=== PATIENT | female | born 1960 | race Caucasian/White ===

== ENCOUNTER → 2020-11-27 07:54 | Outpatient (CLI) | payer OTHER, SELFPAY ==
--- NOTE | 2020-11-27 | DI.US.S_ITS ---
PROCEDURE: US ABDOMEN COMPLETE INDICATIONS: BILIARY COLIC TECHNIQUE: Real-time scanning was performed of the abdominal and retroperitoneal organs, with image documentation. COMPARISON: [facility], US, ABDOMEN COMPLETE, 04/15/2008, 14:07. FINDINGS: Liver: The liver demonstrates prominent size. The liver demonstrates generalized mildly increased echogenicity. This decreases ultrasound sensitivity for detection of hepatic masses. Gallbladder: No findings of gallstones or sludge are seen. The gallbladder wall is not thickened, measuring 3 mm or less. No specific pericholecystic fluid is seen. The sonographic Henry sign is negative. Biliary ducts: Intrahepatic bile ducts are non-dilated. Extrahepatic bile duct caliber measures 5 mm. Normal is 6-7 mm or less in diameter, or 10 mm or less post-cholecystectomy. Pancreas: Visualized portions of the pancreas are sonographically normal. Spleen: Spleen is normal in size and homogeneous in echotexture. Kidneys: Kidneys are normal in size and echotexture. Right kidney measures 13.2 cm long; left kidney measures 15.1 cm long. No hydronephrosis or nephrolithiasis. No solid masses. Within the right mid/lateral kidney, there is a simple cyst that measures up to 11 mm. The left kidney demonstrates a duplicated collecting system with trace pelvicaliectasis. The inferior ureter is prominent, measuring 1.7 cm. Aorta: Visualized aorta is normal in caliber at less than 3 cm. Iliacs: Proximal common iliac arteries are normal in caliber at less than 2.5 cm. IVC: Intrahepatic inferior vena cava is patent. Miscellaneous: No free abdominal fluid. IMPRESSION: The gallbladder demonstrates a normal sonographic appearance. No biliary dilatation is seen. Duplicated left renal collecting system incidentally noted, with prominence of the inferior left proximal ureter. Enlarged, fatty infiltrated liver. Dictated by: Ramírez Silva M.D. on 11/27/2020 at 9:43 Approved by: Ramírez Silva M.D. on 11/27/2020 at 9:45
== END ==
PROVIDERS: Referring Provider Family Medicine; Visit Provider Family Medicine
DX: K80.50 Calculus of bile duct without cholangitis or cholecystitis without obstruction (principal); K76.0 Fatty (change of) liver, not elsewhere classified
CPT/HCPCS: 76700

== ENCOUNTER → 2021-05-28 15:22 | Outpatient (CLI) | payer OTHER, SELFPAY ==
--- NOTE | 2021-05-28 15:26 | DI.RAD.S_ITS ---
PROCEDURE: XR SHOULDER LT MIN 2V INDICATIONS: SHOULDER PAIN TECHNIQUE: 3 views of the shoulder were acquired. COMPARISON: [facility], CR, XR SHOULDER 4 VW LT, 09/01/2016, 14:54. [facility], CR, XR KNEE ARTHRITIC SERIES BI, 09/01/2016, 14:54. Left shoulder plain films 09/01/16 reviewed.. FINDINGS: Bones: No fractures or dislocations. No suspicious bony lesions. Visualized ribs appear intact. There has been slight interval worsening of a mild degree of AC joint osteoarthritis with reference to the prior study from August of 2016. Soft tissues: No suspicious soft tissue calcifications. IMPRESSION: Mild left shoulder AC joint osteoarthritis, slightly worsened from the comparison study from August of 2016. No trauma found. Dictated by: Hilton Garzon M.D. on 05/28/2021 at 15:40 Approved by: Hilton Garzon M.D. on 05/28/2021 at 15:44
== END ==
PROVIDERS: Referring Provider Physician Assistant; Visit Provider Physician Assistant
DX: M25.512 Pain in left shoulder (principal); M19.012 Primary osteoarthritis, left shoulder
CPT/HCPCS: 73030

== ENCOUNTER → 2022-02-16 13:41 | Outpatient (CLI) | payer OTHER, SELFPAY ==
--- NOTE | 2022-02-16 | DI.MG.S_ITS ---
BILATERAL DIGITAL SCREENING MAMMOGRAM 3D/2D WITH CAD: 02/16/2022 CLINICAL: Routine screening. Family history of breast cancer. Comparison is made to exam dated: 04/02/2015 mammogram - [facility]. Both breasts are heterogeneously dense, which may obscure small masses (category c / 51-75% glandular tissue). Current study was also evaluated with a Computer Aided Detection (CAD) system. No significant masses, calcifications, or other findings are seen in either breast. There has been no significant interval change. IMPRESSION: NEGATIVE There is no mammographic evidence of malignancy. A 1 year screening mammogram is recommended. Based on the Tyrer Cuzick model (a risk assessment model) the patient's lifetime risk is 14.1% and her 10 year risk is 6.2%. According to the ACR, ACS, and NCCN guidelines, an annual breast MRI exam along with mammogram is recommended if the patient's lifetime risk is 20% or greater. This exam was interpreted at Station ID: [id number]. NOTE: For mammograms, a report in lay terms will be sent to the patient. Approximately 15% of breast malignancies will not be visualized mammographically. In the management of a palpable breast mass, a negative mammogram must not discourage biopsy of a clinically suspicious lesion. Electronically Signed By: Tenzin reeves/juanita:02/16/2022 21:52:42 letter sent: Normal Exam ACR BI-RADS Category 1: Negative [id number]
--- NOTE | 2022-02-16 | DI.ECHO.S_ITS ---
[facility] +---------+ : : [address] : : : : [id number] : : : : Phone: [phone]+ Echocardiogram Report + + :Name: SARA CAMPUZANO Study Date: 02/16/2022 Height: 67 in : :[facility] ReadingLocation: Weight: 210 lb : : Gender: Female BSA: 2.1 m2 : :: 1960 Age: 61 yrs BP: 125/77 mmHg: :Reason For Study: GENERAL ADULT EXAMINATION WITHOUT ABNORMAL : :FINDINGS : :Ordering Physician: ROCIO, : :ANMOL Performed By: Charley Pérez : :Referring: ANMOL CHAN : + + Interpretation Summary The ejection fraction is estimated to be 60-65%. Diastolic parameters suggest probable normal left ventricular diastolic function and normal filling pressures. The right ventricle is normal in size and function. The left atrium is mildly dilated. There is trace aortic regurgitation. Pulmonary artery pressures cannot be estimated because of the lack of a measurable TR jet velocity. Procedure: A two-dimensional transthoracic echocardiogram with color flow and Doppler was performed. The study quality was technically adequate. The patient had an echocardiogram, but there is no comparison study available. The patient was in sinus bradycardia with heart rates between 50-61 bpm during the exam. Left Ventricle: The left ventricle is normal in size and wall thickness. The ejection fraction is estimated to be 60-65%. Diastolic parameters suggest probable normal left ventricular diastolic function and normal filling pressures. Right Ventricle: The right ventricle is normal in size and function. Atria: The left atrium is mildly dilated. Right atrial size is normal. There is no Doppler evidence for an interatrial shunt. Mitral Valve: The mitral valve is normal in structure and function. There is no mitral regurgitation. Aortic Valve: The aortic valve is trileaflet. The aortic valve opens well. There is no aortic valve stenosis. There is trace aortic regurgitation. Tricuspid Valve: The tricuspid valve is normal in structure and function. There is trace tricuspid regurgitation. Pulmonary artery pressures cannot be estimated because of the lack of a measurable TR jet velocity. Pulmonic Valve: The pulmonic valve leaflets are thin and pliable; valve motion is normal. There is trace pulmonic regurgitation. Great Vessels: The aortic root is normal size. The dimensions of the ascending aorta are normal. The IVC is of normal diameter and collapses greater than 50% with a sniff. This suggests a low right atrial pressure of 3 mm Hg. Pericardium/ Pleura There is no pericardial effusion. There is no pleural effusion. MMode/2D Measurements & Calculations LVIDd: 4.6 cm LVOT diam: 2.4 cm LVIDs: 3.1 cm Ao root diam: 3.3 cm FS: 33.1 % asc Aorta Diam: 3.2 cm IVSd: 0.74 cm Ao Arch Diam (Prox Trans): 2.9 cm LVPWd: 0.76 cm LV nichols. diameter/BSA (cm/m^2): 2.2 LV sys. diameter/BSA (cm/m^2): 1.5 LA A2 area: 23.3 cm2 RA long axis: 5.4 cm LA A4 area: 23.5 cm2 RA area: 14.5 cm2 LA length (vol): 6.1 cm RA vol: 33.2 ml LA vol: 75.8 ml RA : 16.1 ml/m2 LA vol index: 36.7 ml/m2 IVC diam: 1.8 cm RVD1 (basal): 3.2 cm RVD2 (mid): 3.0 cm TAPSE: 1.8 cm Doppler Measurements & Calculations Ao V2 max: 156.0 cm/sec LVOT Max Farhan: 122.0 cm/sec Ao V2 mean: 109.8 cm/sec LV V1 max P.0 mmHg Ao max P.7 mmHg LV V1 VTI: 28.7 cm Ao mean P.2 mmHg RICK(I,D): 3.5 cm2 Ao V2 VTI: 35.9 cm RICK(V,D): 3.5 cm2 sev ratio: 0.80 RICK indexed to BSA (cm^2/m^2): 1.7 MV E max farhan: 82.4 cm/sec PA V2 max: 129.2 cm/sec MV A max farhan: 61.0 cm/sec PA V2 mean: 85.1 cm/sec MV E/A: 1.4 PA mean P.3 mmHg Med Peak E' Farhan: 8.4 cm/sec PA pr(Accel): 29.3 mmHg E/E' med: 9.8 Lat Peak E' Farhan: 11.6 cm/sec E/E' lat: 7.1 E/e' average: 8.5 MV dec time: 0.25 sec SVLVOT): 127.4 ml Reading Physician:04:35 PM
--- NOTE | 2022-02-16 | DI.US.S_ITS ---
PROCEDURE: US ABDOMEN LIMITED INDICATIONS: FATTY LIVER TECHNIQUE: Real-time focused scanning was performed of the abdomen, with image documentation. COMPARISON: [facility], US, US ABDOMEN COMPLETE, 11/27/2020, 8:12. FINDINGS: The liver demonstrates mildly enlarged size. The liver demonstrates generalized moderately increased echogenicity. This decreases ultrasound sensitivity for detection of hepatic masses. The main portal vein demonstrates normal size and demonstrates normal appearing, hepatopetal flow. No findings of gallstones or sludge are seen. The gallbladder wall is not thickened, measuring 3 mm or less. No specific pericholecystic fluid is seen. The sonographic Henry sign is negative. Mild biliary dilatation is seen, with the common bile duct measuring 7-8 mm. The pancreatic duct is prominent at 2.7 mm. No significant additional pancreatic abnormality is seen on these images. IMPRESSION: Enlarged, fatty liver. Mild prominence of the common bile duct and the pancreatic duct. - If clinically appropriate, an MRCP could be considered for further evaluation (assuming that there is no contraindication to MRI). Dictated by: Ramírez Silva M.D. on 02/16/2022 at 15:18 Approved by: Ramírez Silva M.D. on 02/16/2022 at 15:19
== END ==
PROVIDERS: PCP Family Medicine; Referring Provider Family Medicine; Visit Provider Family Medicine
DX: Z00.00 Encounter for general adult medical examination without abnormal findings (principal); Z12.31 Encounter for screening mammogram for malignant neoplasm of breast; Z80.3 Family history of malignant neoplasm of breast; K76.0 Fatty (change of) liver, not elsewhere classified; K83.8 Other specified diseases of biliary tract
CPT/HCPCS: 76705; 77063; 77067; 93306

== ENCOUNTER → 2022-05-09 12:09 | Outpatient (CLI) | payer OTHER, SELFPAY ==
--- NOTE | 2022-05-09 | DI.RAD.S_ITS ---
PROCEDURE: XR LUMBAR SPINE 2-3V INDICATIONS: PSORIATIC ARTHRITIS TECHNIQUE: 3 views of the lumbar spine were acquired. COMPARISON: None. FINDINGS: Bones: 5 [id number] vertebrae are present. There is mild rightward curvature of lumbar spine centered at L3 level. Degenerative endplate changes, loss of disc height and bilateral facet arthrosis throughout lumbar spine is seen. 4 mm anterolisthesis of L4 on L5 is seen. No vertebral body compression fractures. No suspicious bony lesions. Soft tissues: Overlying bowel gas pattern is normal. No suspicious soft tissue calcifications. IMPRESSION: Mild scoliosis as above. 4 mm anterolisthesis of L4 on L5. Degenerative disc disease throughout lumbar spine. No acute compression fracture. Dictated by: Kyle Ovalle M.D. on 05/09/2022 at 12:48 Approved by: Kyle Ovalle M.D. on 05/09/2022 at 12:49
== END ==
PROVIDERS: PCP Family Medicine; Referring Provider Family Medicine; Visit Provider Family Medicine
DX: L40.50 Arthropathic psoriasis, unspecified (principal); M51.36 Other intervertebral disc degeneration, lumbar region; M43.16 Spondylolisthesis, lumbar region; M41.9 Scoliosis, unspecified
CPT/HCPCS: 72100

== ENCOUNTER → 2023-04-07 16:45 | Outpatient (CLI) | payer OTHER, SELFPAY ==
--- NOTE | 2023-04-07 | DI.MRI.S_ITS ---
PROCEDURE: MR HEAD/BRAIN WO/W CON INDICATIONS: Tinnitus TECHNIQUE: Noncontrast axial T1 spin echo, axial T2 fast spin echo, sagittal and axial FLAIR, coronal T2 fast spin echo, axial gradient echo, axial diffusion and ADC through the brain. After the administration of contrast, axial and coronal and sagittal T1 spin echo with fat saturation through the brain. COMPARISON: None. FINDINGS: Image quality: Diagnostic, with note made of motion artifact. CSF spaces: Basal cisterns are patent. No extra-axial fluid collections. Ventricles are normal in size and shape. Brain: No midline shift. No intracranial bleeds or masses. No abnormal intracranial enhancement. There is mild cerebral volume loss for age. There is mild periventricular white matter chronic small vessel ischemic change. The brainstem appears normal. Diffusion-weighted images demonstrate no acute ischemic insults. No chronic ischemic insults. Normal intravascular flow voids are present. Note is made of age-appropriate brain parenchymal volume loss and chronic small vessel ischemic changes. Skull and face: Calvarial marrow is normal in signal. Orbits appear normal. Sinuses: Sinuses and mastoids appear clear. IMPRESSION: No significant abnormality is seen. Specifically, no masses or abnormal enhancement are seen within the cerebellopontine angle cisterns or within the internal auditory canals. Dictated by: Ramírez Silva M.D. on 04/07/2023 at 17:34 Approved by: Ramírez Silva M.D. on 04/07/2023 at 17:36
== END ==
PROVIDERS: PCP Family Medicine; Referring Provider Family Medicine; Visit Provider Family Medicine
DX: H93.13 Tinnitus, bilateral (principal)
CPT/HCPCS: 70553; A9579

== ENCOUNTER 2023-06-21 16:47 | Emergency (ER) | payer OTHER, SELFPAY ==
[2023-06-21] VITALS (11 sets, daily range): BP systolic 113–166; BP diastolic 56–66; PULSE 56–64; RESP 12–35; TEMP 36.6; O2SAT 98–100; BMI 71.4
--- NOTE | 2023-06-21 17:03 | DI.RAD.S_ITS ---
PROCEDURE: XR CHEST 1V INDICATIONS: chest pain TECHNIQUE: One view of the chest was acquired. COMPARISON: [facility], , CHEST 2 VIEW, 03/17/2008, 16:04. FINDINGS: Surgical changes and devices: None. Lungs and pleura: Lungs are clear. No pleural effusions or pneumothorax. Mediastinum: Mediastinal contours appear normal. Heart size is normal. Bones and chest wall: No suspicious bony lesions. Overlying soft tissues appear unremarkable. IMPRESSION: No acute cardiopulmonary abnormality is seen. Dictated by: Kathia Mayorga M.D. on 06/21/2023 at 18:44 Approved by: Kathia Mayorga M.D. on 06/21/2023 at 18:44
[2023-06-21 17:27] LABS: Add Manual Diff / Slide Review NO; Basophils Absolute Auto 0 /uL (0-100); Basophils Percent Auto 0.9 % (0-2); Eosinophils Absolute Auto 100 /uL (0-450); Eosinophils Percent Auto 1.5 % (2-4); Hematocrit 35.7 % (36-46); Hemoglobin 12.1 g/dL (12.0-16.0); Lymphocytes Absolute Auto 2000 /uL (1100-4500); Lymphocytes Percent Auto 36.2 % (25-40); Mean Corpuscular HGB Conc 33.8 % (30-36); Mean Corpuscular Hemoglobin 29.3 PG (26-34); Mean Corpuscular Volume 86.6 fL (80-100); Monocytes Absolute Auto 400 /uL (0-900); Monocytes Percent Auto 7.4 % (3-14); Neutrophils Absolute Auto 3100 /uL (1500-7000); Platelet Count 316 X10^3/uL (150-400); Red Blood Cell Count 4.12 X10^6/uL (4.0-5.2); Red Cell Distribution Width 13.6 % (11.6-14.8); White Blood Cell Count 5.7 X10^3/uL (4.5-11.0)
[2023-06-21 17:33] LABS: INR 0.9 (0.9-1.3); Prothrombin Time 10.5 SECONDS (9.4-12.5)
[2023-06-21 17:36] LABS: Alanine Aminotransferase 34 IU/L (<35); Albumin 4.7 g/dL (3.5-5.0); Albumin Globulin Ratio 1.6 (1.0-2.8); Alkaline Phosphatase 57 U/L (38-126); Aspartate Aminotransferase 26 IU/L (14-36); BUN Creatinine Ratio 29.9 (6-22); Bilirubin Total 0.4 mg/dL (0.2-1.3); Blood Urea Nitrogen 20 mg/dL (7-17); Calcium 9.6 mg/dL (8.4-10.2); Carbon Dioxide 26 mmol/L (22-32); Chloride 101 mmol/L (98-107); Creatine Kinase 104 U/L (30-135); Estimated Glomerular Filt Rate > 60 mL/min (>60); Glucose 162 mg/dL (80-110); HEMOLYSIS < 15 (0-50); Lipase 130 U/L (23-300); Magnesium 1.9 mg/dL (1.6-2.3); PTT Partial Thromboplastin Tim 33 SECONDS (25.1-36.5); Potassium 4.2 mmol/L (3.4-5.1); Sodium 136 mmol/L (137-145); Total Protein 7.7 g/dL (6.3-8.2)
[2023-06-21 17:48] LABS: Troponin I < 0.012 ng/mL (0.01-0.034)
--- NOTE | 2023-06-21 18:14 | PC.NURSE ---
Pt reports feeling very tired and SOB since yesterday. Chest pain came on today suddenly after climbing a flight of stairs and lasted for about 10-15 mins and resolved after taking 324 of baby aspirin. Pt also has had LEFT leg pain in her medial upper thigh and was at her PCP today to get that checked out. Currently denies chest pain. Call light within reach and encouraged to use for any needs/changes in her condition.
--- NOTE | 2023-06-21 18:31 | ED_ITS ---
HPI - Chest Pain General Chief Complaint: Chest Pain Stated Complaint: ches pain, lt neck and shoulder pain Time Seen by Provider: 06/21/23 18:02 Source: patient Mode of arrival: Family Vehicle Limitations: no limitations History of Present Illness HPI narrative: 63-year-old female with history of hyperlipidemia, insulin-dependent diabetes presents by private vehicle for left lower extremity pain, chest pain, shortness of breath since yesterday. Patient states that she felt more winded than usual and after exerting herself she felt left-sided chest pain. She saw her primary care physician, who took an EKG that was reported to be normal. Afterwards she was referred to the ED for additional evaluation. Patient states she is currently pain-free. Reports history of heart disease in her brother, who in his 60s of heart disease. Related Data Allergies Allergy/AdvReac Type Severity Reaction Status Date / Time bupropion [From Wellbutrin] AdvReac Unknown Verified 06/11/21 17:35 Review of Systems Review of Systems Narrative: Negative except as noted above Patient History Social History Smoking Status: Former smoker Smoking Status: Former smoker Exam Initial Vital Signs Initial Vital Signs: Vital Signs Temperature 97.9 F 06/21/23 16:53 Pulse Rate 64 06/21/23 16:53 Respiratory Rate 16 06/21/23 16:53 Blood Pressure 135/65 06/21/23 16:53 Pulse Oximetry 98 06/21/23 16:53 Oxygen Delivery Method Room Air 06/21/23 16:53 Const: Awake, alert, no acute distress, nontoxic appearing Cardiac: regular rate, regular rhythm RESP: unlabored, clear bilaterally, no wheezing GI: Atraumatic, soft, nontender, nondistended, no rebound, no guarding MSK: Atraumatic, full range of motion, pulses equal Skin: Warm, Dry, intact, no rashes Neuro: AO x3, CN II-XII grossly intact, moves all extremities Psych: affect normal, mood normal, not suicidal, not homicidal Course Orders Ordered: ED Orders 06/21/23 17:03 XR chest 1V Stat EKG-12 Lead Stat 06/21/23 17:14 Complete Blood Count AUTO DIFF Stat Comprehensive Metabolic Panel Stat D Dimer Stat Lipase Stat Magnesium Stat PTT Partial Thromboplastin Rodger Stat Prothrombin Time INR Stat Troponin & CK Cardiac Panel Stat 06/21/23 18:31 US periph venous low extrem lt Stat Vital Signs Vital signs: Vital Signs - 8 hr 06/21/23 18:06 06/21/23 18:07 06/21/23 18:07 Pulse Rate 63 64 Respiratory Rate 19 15 Blood Pressure 135/61 135/61 Pulse Oximetry 99 99 Oxygen Delivery Method Room Air Room Air 06/21/23 18:30 06/21/23 18:31 06/21/23 18:31 Pulse Rate 60 59 L Respiratory Rate 35 H 26 H Blood Pressure 166/66 H Pulse Oximetry 100 99 Oxygen Delivery Method Room Air Room Air 06/21/23 19:00 06/21/23 19:01 06/21/23 19:01 Pulse Rate 58 L 58 L Respiratory Rate 18 21 Blood Pressure 121/58 L Pulse Oximetry 99 99 Oxygen Delivery Method Room Air 06/21/23 19:30 06/21/23 19:30 06/21/23 19:59 Pulse Rate Respiratory Rate 16 Blood Pressure 123/61 Pulse Oximetry 99 100 Oxygen Delivery Method Room Air 06/21/23 20:08 06/21/23 20:08 06/21/23 20:09 Pulse Rate 56 L Respiratory Rate 18 Blood Pressure 113/56 L 113/59 L Pulse Oximetry 100 Oxygen Delivery Method Room Air 06/21/23 20:09 Pulse Rate 57 L Respiratory Rate 12 Blood Pressure Pulse Oximetry 99 Oxygen Delivery Method Room Air MDM - Chest Pain Differential Diagnosis Differential diagnosis: Likely fracture of rib, unstable angina pectoris, st elevation myocardial infarction and costochondritis Lab Data 06/21/23 17:14 06/21/23 17:14 Labs: Lab Results 06/21/23 Range/Units 17:14 WBC 5.7 (4.5-11.0) X10^3/uL RBC 4.12 (4.0-5.2) X10^6/uL Hgb 12.1 (12.0-16.0) g/dL Hct 35.7 L (36-46) % MCV 86.6 (80-100) fL MCH 29.3 (26-34) PG MCHC 33.8 (30-36) % RDW 13.6 (11.6-14.8) % Plt Count 316 (150-400) X10^3/uL Neut % (Auto) 54.0 (50-75) % Lymph % (Auto) 36.2 (25-40) % [place] % (Auto) 7.4 (3-14) % Eos % (Auto) 1.5 L (2-4) % Baso % (Auto) 0.9 (0-2) % Neut # (Auto) 3100 (1277-5226) /uL Lymph # (Auto) 2000 (9844-3594) /uL [place] # (Auto) 400 (0-900) /uL Eos # (Auto) 100 (0-450) /uL Baso # (Auto) 0 (0-100) /uL PT 10.5 (9.4-12.5) SECONDS INR 0.9 (0.9-1.3) APTT 33 (25.1-36.5) SECONDS D-Dimer < 215 (<500) ng/ml Sodium 136 L (137-145) mmol/L Potassium 4.2 (3.4-5.1) mmol/L Chloride 101 (98-107) mmol/L Carbon Dioxide 26 (22-32) mmol/L BUN 20 H (7-17) mg/dL Creatinine 0.67 (0.52-1.04) mg/dL Estimated GFR > 60 (>60) mL/min BUN/Creatinine Ratio 29.9 H (6-22) Glucose 162 H (80-110) mg/dL Calcium 9.6 (8.4-10.2) mg/dL Magnesium 1.9 (1.6-2.3) mg/dL Total Bilirubin 0.4 (0.2-1.3) mg/dL AST 26 (14-36) IU/L ALT 34 (<35) IU/L Alkaline Phosphatase 57 (38-126) U/L Total Creatine Kinase 104 (30-135) U/L Troponin I < 0.012 (0.01-0.034) ng/mL Total Protein 7.7 (6.3-8.2) g/dL Albumin 4.7 (3.5-5.0) g/dL Globulin 3.0 (1.7-4.1) g/dL Albumin/Globulin Ratio 1.6 (1.0-2.8) Lipase 130 (23-300) U/L ECG Data Interpretation: Normal sinus rhythm, normal DC interval. No ST-T wave changes, no STEMI MDM Narrative Medical decision making narrative: Well appearing patient with above complaints. EKG is NSR, Patient currently pain free. Initial troponin undetectable. D-dimer <215. With normal vitals, undetectable troponin, normal D-dimer PE or TN much less likely. Ultrasound negative for DVT. Chest x-ray negative for acute findings. Patient remained pain-free throughout the stay in the emergency department. Patient was counseled of all lab and imaging findings, recommended close PCP and cardiology follow up. Cardiology referral provided. ED return precautions discussed at bedside. Patient expressed understanding of the plan and is in agreement at this time. All questions answered at the time of discharge. Discharge Plan Departure Patient Disposition: Home Clinical Impression: Chest pain Instructions: DI for Chest Pain Referrals: Min Shaw MD [Physician] - Catia Aguilera MD [Primary Care Provider] - Stand Alone Forms: Patient Portal/API
--- NOTE | 2023-06-21 18:31 | DI.US.S_ITS ---
PROCEDURE: US PERIPH VENOUS LOW EXTREM LT INDICATIONS: LLE SWELLING, THIGH PAIN TECHNIQUE: Real-time imaging, as well as color and pulse Doppler interrogation, were performed of the lower extremity deep veins from the inguinal ligament to the popliteal fossa, with documentation of the visualized calf veins. COMPARISON: None. FINDINGS: The common femoral, femoral, popliteal, and the visualized calf veins are normally compressible, and free of intraluminal thrombus. Color and pulse Doppler demonstrate normal phasic intraluminal flow. There is normal augmentation response to distal compression maneuver. IMPRESSION: No findings of lower extremity deep venous thrombosis. Approved by: Kathia Mayorga M.D. on 06/21/2023 at 20:37
[2023-06-21 18:52] LABS: D Dimer < 215 ng/ml (<500)
== END 2023-06-21 20:19 | disposition home or self-care (01) ==
PROVIDERS: Emergency Medicine; Emergency Provider Emergency Medicine; PCP Family Medicine
DX: R07.9 Chest pain, unspecified (principal); R06.02 Shortness of breath; R60.9 Edema, unspecified; M79.652 Pain in left thigh
CPT/HCPCS: 36415; 71045; 80053; 82550; 83690; 83735; 84484; 85025; 85379; 85610; 85730; 93005; 93971; 99283; 99284

== ENCOUNTER 2023-08-13 10:46 | Emergency (ER) | payer OTHER, SELFPAY ==
[2023-08-13 11:04] VITALS: BP 133/61; PULSE 74; RESP 16; TEMP 36.7; O2SAT 99; BMI 32.1
--- NOTE | 2023-08-13 11:06 | DI.RAD.S_ITS ---
PROCEDURE: XR KNEE RT 3V INDICATIONS: fall, distal knee pain TECHNIQUE: 3 views of the knee were acquired. COMPARISON: None. FINDINGS: Bones: No fractures or dislocations. No suspicious bony lesions. Patella Xi. Soft tissues: No joint effusion. No suspicious soft tissue calcifications. IMPRESSION: No acute bony abnormality or significant effusion. Dictated by: Fernando Alfredo M.D. on 08/13/2023 at 10:45 Approved by: Fernando Alfredo M.D. on 08/13/2023 at 10:46
--- NOTE | 2023-08-13 11:09 | ED.FALL ---
HPI - Fall <Patricia Echavarria PA-C - Last Filed: 08/13/23 13:11> General Chief Complaint: Fall Stated Complaint: fell down stairs, right knee pain Time Seen by Provider: 08/13/23 10:48 History of Present Illness HPI Narrative: This is a 63-year-old diabetic female with well-controlled blood sugars who presents with concern for right knee pain and some aches and pains after she took a fall last night coming down some slippery steps in the rain. Patient states she was at her studio that has 4 steps on the deck and was coming down the steps, she missed the 1st step and slipped down landing on her left buttock and ?bumping all the way? down the stairs at some point she says her right knee ended up behind and underneath her at a strange angle and when she went to stand up she realized she could not bear weight on it initially unless she stood just so. She did walk back to her house across the street and actually walked about 100 steps in addition as she had not quite made her 10,000 step count for the day went to sleep and when she got up in the middle of the night to use the bathroom realized it was very painful to bear weight on her right leg due to her knee pain and was unable to do so. This morning she has been using some properly sized crutches that belonged to a different family member and gingerly weight-bearing when needed for certain movements. She describes her knee pain as a aching pain sometimes with a shooting sensation with weight-bearing. She states she has a little bit of aching discomfort feels muscular or bruised up high on the left side of her back as well as pain in her left buttock with bruise sensation and also a little bit of discomfort in her arms past her elbows but she has been able to bear weight normally on her left leg without pain and has been using her arms without pain or difficulty since the event. She denies hitting her head loss of consciousness neck pain numbness or tingling of extremities or any other symptoms. Related Data Previous Rx's Medication Instructions Recorded lidocaine 5 % topical ointment 1 applic topical TID PRN pain #30 08/13/23 grams Allergies Allergy/AdvReac Type Severity Reaction Status Date / Time bupropion [From Wellbutrin] AdvReac Unknown Verified 06/11/21 17:35 Review of Systems <Patricia Echavarria PA-C - Last Filed: 08/13/23 13:11> Review of Systems Narrative: See HPI Patient History <Patricia Echavarria PA-C - Last Filed: 08/13/23 13:11> Social History Smoking Status: Former smoker Smoking Status: Former smoker Exam <Patricia Echavarria PA-C - Last Filed: 08/13/23 13:11> Narrative Exam Narrative: GENERAL: 63 year old patient appears stated age. Well-developed patient, in mild distress. HEAD: Atraumatic. Normocephalic. EYES: Pupils equal round and reactive. Extraocular motions intact. No scleral icterus. No injection or drainage. ENT: Nose without bleeding, purulent drainage. Throat without erythema, tonsillar hypertrophy or exudate. Airway patent. NECK: Trachea midline. Non tender CARDIOVASCULAR: Regular rate and rhythm without murmurs, gallops, or rubs. RESPIRATORY: Clear to auscultation. Breath sounds equal bilaterally. No wheezes, rales, or rhonchi. GASTROINTESTINAL: Abdomen soft, non-tender, nondistended. EXTREMITIES: On the affected right knee there is a mild effusion inferior and lateral to the patella, patient has some tenderness just inferior to the tibial tuberosity, she also has tenderness of the lateral joint line, knee is stable with anterior and posterior drawer, some increased pain with varus stress, there is no increased pain or hypermobility with rotation/Apley grind. No other edema or joint tenderness. Distal pulses intact. There is a small soft tissue contusion on the patient's left forearm just distal to the left elbow, range of motion of the elbow wrist hand are intact and pain-free. There is tenderness with a subtle bruise forming over the left posterior buttock. Range of motion of the left leg is intact and pain-free, with normal ROM and weightbears w/o difficulty. BACK/SPINE: There is no spinal process tenderness step-off or deformity. There is paraspinal muscle tenderness on the left in the thoracic region. Otherwise Nontender without deformity or crepitance. No flank tenderness. NEURO: AOx3. SKIN: No rash or erythema of visible areas Initial Vital Signs Initial Vital Signs: Vital Signs Temperature 98.1 F 08/13/23 11:04 Pulse Rate 74 08/13/23 11:04 Respiratory Rate 16 08/13/23 11:04 Blood Pressure 133/61 08/13/23 11:04 Pulse Oximetry 99 08/13/23 11:04 Oxygen Delivery Method Room Air 08/13/23 11:04 <Mitzy Rollins MD - Last Filed: 08/13/23 13:55> Initial Vital Signs Initial Vital Signs: Vital Signs Temperature 98.1 F 08/13/23 11:04 Pulse Rate 74 08/13/23 11:04 Respiratory Rate 16 08/13/23 11:04 Blood Pressure 133/61 08/13/23 11:04 Pulse Oximetry 99 08/13/23 11:04 Oxygen Delivery Method Room Air 08/13/23 11:04 Course <Patricia Echavarria PA-C - Last Filed: 08/13/23 13:11> Orders Ordered: ED Orders 08/13/23 11:06 XR knee RT 3V Stat Vital Signs Vital signs: Vital Signs - 8 hr 08/13/23 11:04 08/13/23 12:48 Temperature 98.1 F Pulse Rate 74 68 Respiratory Rate 16 18 Blood Pressure 133/61 117/57 L Pulse Oximetry 99 99 Oxygen Delivery Method Room Air Room Air <Mitzy Rollins MD - Last Filed: 08/13/23 13:55> Orders Ordered: ED Orders 08/13/23 11:06 XR knee RT 3V Stat Vital Signs Vital signs: Vital Signs - 8 hr 08/13/23 11:04 08/13/23 12:48 Temperature 98.1 F Pulse Rate 74 68 Respiratory Rate 16 18 Blood Pressure 133/61 117/57 L Pulse Oximetry 99 99 Oxygen Delivery Method Room Air Room Air MDM - Fall <Patricia Echavarria PA-C - Last Filed: 08/13/23 13:11> Differential Diagnosis Differential diagnosis: Likely other (Knee sprain, strain, internal derangement of knee, tibial plateau fracture) Medical Records Attestation: I reviewed the patient's medical records. Imaging Data Extremity x-ray #1: My Impression: Agree with Radiology interpretation Radiologist's Impression: [address] [address] XRay Report Signed Patient: Brittny Savage#: [id number] : 1960 Acct:[id number] Age/Sex: 63 / F Date of Service: 08/13/23 Loc: ED Accession Number: [id number] Procedure: XR knee RT 3V Ordering Provider: Mitzy Rollins MD PROCEDURE: XR KNEE RT 3V INDICATIONS: fall, distal knee pain TECHNIQUE: 3 views of the knee were acquired. COMPARISON: None. FINDINGS: Bones: No fractures or dislocations. No suspicious bony lesions. Patella Bear. Soft tissues: No joint effusion. No suspicious soft tissue calcifications. IMPRESSION: No acute bony abnormality or significant effusion. Dictated by: Fernando Alfredo M.D. on 08/13/2023 at 10:45 Approved by: Fernando Alfredo M.D. on 08/13/2023 at 10:46 [facility] Narrative Medical decision making narrative: This is a well-appearing 63-year-old female reports history of diabetes with a well-controlled sugars with a fall last night coming down some steps in the rain landing on her buttock and twisting her right knee underneath her. Exam is largely unremarkable she does have some soft tissue injuries/forming bruises of the left buttock and mild contusion of the left forearm however she has right knee pain with swelling tenderness of the lateral joint line and has had minimal weight-bearing since this morning due to pain. Knee x-rays obtained today show no bony abnormality. Discussed with the patient that injury such as tibial plateau fracture or meniscal tear can not be ruled out with x-ray however given she has ambulated a fair bit since the event and has no laxity of the knee on exam we discussed holding off on CT today as this may be something that improves independently with rest ice compression elevation. Do advise her to have close orthopedic follow-up in clinic and their information for office number is shared with her today, she is also placed in a knee immobilizer which she appreciates and is provided with crutches and crutch training today in the ER. Encouraged to take Tylenol ibuprofen as needed for pain consider rest and elevation as well as ice over the next 24 hours. Return precautions provided, follow-up plan discussed, all questions answered. Discharge Plan Departure Patient Disposition: Home Clinical Impression: Fall (on) (from) other stairs and steps, initial encounter Right knee sprain Qualifiers: Encounter type: initial encounter Involved ligament of knee: unspecified ligament Qualified Code(s): S83.91XA - Sprain of unspecified site of right knee, initial encounter Activity Restrictions/Additional Instructions: *You have been diagnosed with [right knee sprain, fall] *What to do: *Please continue to take your regular medications as directed. [1 ] New medication prescriptions sent to your pharmacy: [Lidocaine topical] [ ] New medication written as a paper prescription [ ] No new medications given *Please follow up with your primary care provider in 2-3 days, call for an appointment. Let them know you were seen in the Emergency Department and that we ask that you be seen in follow up. We will electronically transmit a record of today's note if your PCP is in our system. Your x-ray looked okay today but based on your exam and the fact that you are having pain with weight-bearing I definitely think that you have a sprain and should be evaluated by Orthopedics in clinic. We placed you in a knee immobilizer to keep you from moving her knee and I would like you to try to avoid weight-bearing on your right leg for the time being, use the crutches provided today in the ER. I send in a prescription for some lidocaine topical that can be used to help with pain, you can also take Tylenol and ibuprofen but with your diabetes be cautious about taking too many NSAIDs (like ibuprofen) as this can be problematic for your kidneys. I have included the office number and name of our on-call orthopedic provider for the day you can certainly see anyone in their office for follow-up I recommend calling this number to get scheduled to be seen. If you have worsening pain or new symptoms please do not hesitate to be re-evaluated sooner. *If you do not have a primary care provider please contact the [facility] Resource line at [phone]. They will ask some questions about your medical history and help get you set up with a doctor in the community. *Return to Emergency Department if you should have any new, worsening or concerning symptoms, such as [fever greater than 101 F, shaking chills, worsening pain, persistent vomiting or other bothersome symptoms] Prescriptions: New lidocaine 5 % ointment 1 applic topical TID PRN (Reason: pain) Qty: 30 0RF Referrals: Catia Aguilera MD [Primary Care Provider] - Justin Ramirez MD [Physician] - (R knee injury/sprain needs ortho f/u eval) Stand Alone Forms: Patient Portal/API ED Sign-out <Mitzy Rollins MD - Last Filed: 08/13/23 13:55> Cosign ED Attending Cosignature Attestation: I did not see this patient. I was available all times for consultation.
[2023-08-13 12:48] VITALS: BP 117/57; PULSE 68; RESP 18; O2SAT 99
== END 2023-08-13 12:51 | disposition home or self-care (01) ==
PROVIDERS: Emergency Provider Student in an Organized Health Care Education/Training Program; PCP Family Medicine
DX: S83.91XA Sprain of unspecified site of right knee, initial encounter (principal); W10.9XXA Fall (on) (from) unspecified stairs and steps, initial encounter
CPT/HCPCS: 73562; 99283

== ENCOUNTER → 2024-07-30 17:14 | Outpatient (CLI) | payer OTHER, SELFPAY ==
--- NOTE | 2024-07-30 17:17 | DI.RAD.S_ITS ---
PROCEDURE: XR FINGER LT MIN 2V INDICATIONS: DEFORMITY L INDEX FINGER TECHNIQUE: AP hand, 2 views of the left 2nd finger(s) acquired. COMPARISON: None. FINDINGS: Bones: Moderate diffuse osteoporosis noted. Ulnar minus noted. No focal osseous lesion Joints: Severe erosive osteoarthritis is present in the 2nd, 4th and 5th DIP. There is moderate degenerative change in the STT , 1st CMC and remaining interphalangeal joints. Soft tissues: No soft tissue abnormality. IMPRESSION: Multilevel erosive osteoarthritis and degeneration that as described. Osteoporosis. Suggest DEXA scan. If confirmed , patient may benefit from medical therapy for future fracture prevention Dictated by: Dean Tate M.D. on 07/31/2024 at 11:19 Approved by: Dean Tate M.D. on 07/31/2024 at 11:21
== END ==
PROVIDERS: PCP Family Medicine; Referring Provider Family Medicine; Visit Provider Family Medicine
DX: M20.012 Mallet finger of left finger(s) (principal); M19.042 Primary osteoarthritis, left hand; M81.0 Age-related osteoporosis without current pathological fracture
CPT/HCPCS: 73140

== ENCOUNTER → 2024-08-21 16:52 | Outpatient (CLI) | payer OTHER, SELFPAY ==
--- NOTE | 2024-08-21 16:54 | DI.MG.S_ITS ---
MM screening mammo BI: 08/21/2024. BI-RADS: 1 CLINICAL: 64-year old female for bilateral screening mammogram. Tyrer-Cuzick lifetime risk of 15.5%. No personal or first-degree family history of breast cancer. Current reported family history of breast cancer: paternal grandmother. PRIOR EXAMS 02/16/2022, 04/02/2015. MAMMOGRAPHY TECHNIQUE: 2D and 3D (tomosynthesis) digital mammographic views obtained, with additional images as needed for full coverage. Current study was also evaluated with a Computer Aided Detection (CAD) system. DENSITY C. The breasts are heterogeneously dense, which may obscure small masses. MAMMOGRAPHY FINDINGS Bilateral: No suspicious mass, asymmetry, microcalcification, or other abnormality seen. No significant change from comparison. IMPRESSION: * No evidence of malignancy. RECOMMENDATIONS Bilateral * Annual screening mammography. OVERALL ASSESSMENT CATEGORY BI-RADS-1: Negative. [employer] recommends annual screening mammography beginning at age 40 for women with average risk of breast cancer. ELECTRONICALLY SIGNED: Nisha Oquendo M.D. on 08/22/2024 at 08:42:53 AM PT Interpreting Station ID: [id number]
== END ==
PROVIDERS: PCP Family Medicine; Referring Provider Family Medicine; Visit Provider Family Medicine
DX: Z12.31 Encounter for screening mammogram for malignant neoplasm of breast (principal); Z80.3 Family history of malignant neoplasm of breast; R92.333 Mammographic heterogeneous density, bilateral breasts
CPT/HCPCS: 77063; 77067

== ENCOUNTER 2024-10-18 08:32 | Emergency (ER) | payer OTHER, SELFPAY ==
[2024-10-18] VITALS (11 sets, daily range): BP systolic 119–145; BP diastolic 58–69; PULSE 55–76; RESP 16; TEMP 36.6; O2SAT 95–98; BMI 32.4
--- NOTE | 2024-10-18 09:11 | ED_ITS ---
HPI - Extremity Problem General Chief complaint: Extremity Problem,Nontraumatic Stated complaint: left knee swollen- cant bend knee Time Seen by Provider: 10/18/24 08:52 Source: patient Mode of arrival: Family Vehicle History of Present Illness HPI Narrative: 64-year-old female with history of psoriasis and osteoarthritis diabetes here with painful left swollen knee. Patient reports injured her knee walking across some wet river rocks last March and has had swelling since that time. She was referred by her PCP to have an x-ray done but has not had this done yet. She reports overnight noted increasing pain in the knee and not able to bear weight due to pain. Has not noted any significant increase in swelling. No recent injury or trauma since yesterday. No fever or redness of the skin that she has noted. Denies history of gout, DVT. Reports that she has been tested for rheumatoid or psoriatic arthritis and that this testing was negative. Related Data Home Medications Medication Instructions Recorded Confirmed empagliflozin 10 mg tablet mg PO DAILY 07/17/24 07/17/24 (Jardiance) fenofibrate nanocrystallized 145 mg PO DAILY 07/17/24 07/17/24 mg tablet insulin glargine-yfgn 100 unit/mL unit SUBCUT 07/17/24 07/17/24 (3 mL) subcutaneous pen (Semglee (insulin glargine-yfgn) Pen) lisinopril 10 mg tablet mg PO DAILY 07/17/24 07/17/24 metformin 500 mg tablet mg PO 07/17/24 07/17/24 rosuvastatin 20 mg tablet mg PO 07/17/24 07/17/24 Previous Rx's Medication Instructions Recorded lidocaine 5 % topical ointment 1 applic topical TID PRN pain #30 08/13/23 grams Allergies Allergy/AdvReac Type Severity Reaction Status Date / Time gemfibrozil Allergy Mild Hives Verified 10/18/24 09:21 bupropion [From Wellbutrin] AdvReac Unknown Verified 07/17/24 14:38 Review of Systems Review of Systems Narrative: Negative except as stated in HPI Patient History Medical History Psoriasis (~2016) Osteoarthritis (~2019) Arm fracture, left (~1973) Foot pain (~1999) Carpal tunnel syndrome (~2000) Chicken pox (~1973) Tinnitus (~2019) History of urinary incontinence (~2021) Colon polyps Diabetes mellitus (~2003) Pelvic floor dysfunction in female Urge incontinence Surgical History Anesthesia History of colonoscopy Family History Father Diabetes mellitus Hypertension Hyperlipidemia Mother DDD (degenerative disc disease) COPD (chronic obstructive pulmonary disease) Hypertension Brother Diabetes mellitus History of heart disease Hypertension Hyperlipidemia Grandfather Cancer Hyperlipidemia Hypertension Grandmother Cancer Diabetes mellitus Hyperlipidemia Hypertension Grandfather Stroke Grandmother Diabetes mellitus Hypertension Hyperlipidemia Social History Smoking Status: Former smoker Smoking Status: Former smoker tobacco type: cigarettes Alcohol type: wine Exam Initial Vital Signs Initial Vital Signs: Vital Signs Pulse Rate 76 10/18/24 08:39 Pulse Oximetry 98 10/18/24 08:39 Constitutional: Well appearing 64-year-old female sitting on the edge of the bed, no acute distress Head: NCAT Cardiovascular: Regular rate. Left lower extremity is well perfused Pulmonary: CTA bilaterally, no respiratory distress Abdominal: soft, non-tender Extremities: There is moderate swelling of the medial greater than lateral knee. There is tenderness over the medial knee and medial distal thigh. No ecchymosis noted. Patient has near full extension but only able to flex to 90?. There is no overlying redness of the skin. There is slight posterior knee discomfort with palpation. No posterior calf pain. Skin: warm and dry, no diaphoresis Neurological: Alert and oriented x3 Procedures Joint Aspiration Joint Asp./Inject. 1: Time Out Performed: Yes Side of body: left Joint Aspirated: knee Ultrasound Guidance: No Skin Prep: Chlorhexidine Local Anesthetic: lidocaine 1% Amount of anesthesia used (mL): 7 Needle Size Used: 22G Fluid Obtained: bloody Total fluid obtained (mL): 1 Patient Tolerated Procedure: Well and No complications Course Orders Ordered: Discontinued Medications Acetaminophen (Acetaminophen 325 Mg Tablet) 975 mg PO NOW ONE Stop: 10/18/24 09:15 Last Admin: 10/18/24 09:24 Dose: 975 mg Documented By: TAMMY Ketorolac Tromethamine (Ketorolac 30 Mg/Ml Vial) 15 mg IV NOW ONE Stop: 10/18/24 09:15 Last Admin: 10/18/24 09:25 Dose: 15 mg Documented By: TAMMY Lidocaine HCl (Lidocaine 1% 30 Ml) 10 ml INJ INTRA-OP ONE Stop: 10/18/24 11:09 Last Admin: 10/18/24 11:51 Dose: Not Given Documented By: CHEL Lidocaine HCl (Lidocaine 1% 20 Ml) 20 ml INJ INTRA-OP ONE Stop: 10/18/24 11:21 Last Admin: 10/18/24 11:51 Dose: 20 ml Documented By: CHEL Vital Signs Vital signs: Vital Signs - 8 hr 10/18/24 08:39 10/18/24 08:40 10/18/24 08:40 Temperature Pulse Rate 76 70 Respiratory Rate Blood Pressure 141/67 H Pulse Oximetry 98 98 Oxygen Delivery Method 10/18/24 08:43 10/18/24 10:37 10/18/24 10:38 Temperature 97.8 F Pulse Rate 70 56 L 56 L Respiratory Rate 16 Blood Pressure 141/67 H Pulse Oximetry 98 98 98 Oxygen Delivery Method Room Air 10/18/24 10:38 10/18/24 11:00 10/18/24 11:00 Temperature Pulse Rate 59 L Respiratory Rate Blood Pressure 121/58 L 125/60 Pulse Oximetry 95 Oxygen Delivery Method 10/18/24 11:29 10/18/24 11:30 Temperature Pulse Rate 56 L Respiratory Rate Blood Pressure 119/64 Pulse Oximetry 96 Oxygen Delivery Method MDM - Extremity (Nontraumatic) Lab Data 10/18/24 09:30 10/18/24 09:30 Labs: Lab Results 10/18/24 10/18/24 Range/Units 09:30 11:49 WBC 4.9 (4.5-11.0) X10^3/uL RBC 4.60 (4.0-5.2) X10^6/uL Hgb 13.5 (12.0-16.0) g/dL Hct 40.2 (36-46) % MCV 87.4 (80-100) fL MCH 29.4 (26-34) PG MCHC 33.6 (30-36) % RDW 14.5 (11.6-14.8) % Plt Count 332 (150-400) X10^3/uL Neut % (Auto) 57.9 (50-75) % Lymph % (Auto) 28.9 (25-40) % [place] % (Auto) 9.4 (3-14) % Eos % (Auto) 3.0 (2-4) % Baso % (Auto) 0.8 (0-2) % Neut # (Auto) 2900 (2086-5239) /uL Lymph # (Auto) 1400 (6641-4022) /uL [place] # (Auto) 500 (0-900) /uL Eos # (Auto) 100 (0-450) /uL Baso # (Auto) 0 (0-100) /uL ESR 8 (0-20) MM/HR Sodium 138 (137-145) mmol/L Potassium 4.6 (3.4-5.1) mmol/L Chloride 104 (98-107) mmol/L Carbon Dioxide 22 (22-32) mmol/L BUN 20 H (7-17) mg/dL Creatinine 0.60 (0.52-1.04) mg/dL Estimated GFR > 60 (>60) mL/min BUN/Creatinine Ratio 33.3 H (6-22) Glucose 178 H (70-99) mg/dL Uric Acid 3.4 (2.5-6.2) mg/dL Calcium 10.3 H (8.4-10.2) mg/dL C-Reactive Protein < 0.5 (<1.0) mg/dL Fluid Crystals None present (NONE) MDM Narrative Medical decision making narrative: This is a pleasant 64-year-old female with history of diabetes and osteoarthritis who presents with nontraumatic left knee pain and swelling. Differential diagnoses considered include gout, osteoarthritis, Olson cyst, DVT. Exam is not consistent with septic arthritis. Will obtain workup accordingly. Offered this patient IV Toradol for pain management initially Ultrasound did not show DVT. X-ray showed degenerative arthritis. Written consent obtained after risks benefits of arthrocentesis was discussed. After arthrocentesis there is no evidence of crystals. Gram stain negative. Fluid culture is pending. Unfortunately cell count not able to be completed due to low volume of fluid that I was able to obtained. Laboratories are reassuring. No elevated ESR CRP that would be concerning for septic arthritis. I rechecked the patient is resting comfortably. Patient would like to avoid narcotics for pain management. We will have her remain nonweightbearing and follow up with her orthopedic physician which she was seen previously. Recommended continued use of NSAID Discharge Plan Departure Patient Disposition: Home Clinical Impression: Osteoarthritis Instructions: DI for Arthritis Activity Restrictions/Additional Instructions: Your x-ray today showed that you have degenerative arthritis of your knee. This may be the cause of your pain and swelling. The x-ray did not show evidence of fracture. Laboratories were reassuring and did not show evidence of infection or gout. The fluid culture from your knee is pending at the time of your discharge. We will call you if there are bacteria growing in it. For pain please take ibuprofen 800 mg every 8 hours, acetaminophen 1000 mg every 6 hours. You may find topical therapy such as heat/ice, menthol, lidocaine or diclofenac ointment helpful. Please follow-up with your orthopedic surgeon or your family doctor regarding your ED visit today. They may want to do further testing such as MRI of your knee or refer you to physical therapy. Prescriptions: No Action insulin glargine-yfgn [Semglee(insulin glarg-yfgn)Pen] 100 unit/mL (3 mL) insulin pen SUBCUT Patient Comments: [NO ORIGINAL SIG] lisinopril 10 mg tablet PO DAILY rosuvastatin 20 mg tablet PO fenofibrate nanocrystallized 145 mg tablet PO DAILY Jardiance 10 mg tablet PO DAILY metformin 500 mg tablet PO lidocaine 5 % ointment 1 applic topical TID PRN (Reason: pain) Qty: 30 0RF Referrals: Catia Aguilera MD [Primary Care Provider] - Jerrell Pedersen MD [Physician] - (arthritis, painful L knee) Stand Alone Forms: Patient Portal/API/Survey
--- NOTE | 2024-10-18 09:14 | DI.US.S_ITS ---
PROCEDURE: US PERIP VENOUS LOW EXTREM LT INDICATIONS: r/o DVT TECHNIQUE: Real-time imaging, as well as color and pulse Doppler interrogation, were performed of the lower extremity deep veins from the inguinal ligament to the popliteal fossa, with documentation of the visualized calf veins. COMPARISON: [facility], , [facility] VENOUS LOW EXTREM LT, 06/21/2023, 19:36. FINDINGS: The common femoral, femoral, popliteal, and the visualized calf veins are normally compressible, and free of intraluminal thrombus. Color and pulse Doppler demonstrate normal phasic intraluminal flow. There is normal augmentation response to distal compression maneuver. IMPRESSION: No findings of lower extremity deep venous thrombosis. Dictated by: Leopoldo Bain M.D. on 10/18/2024 at 10:11 Approved by: Leopoldo Bain M.D. on 10/18/2024 at 10:11
[2024-10-18] MEDS: ACETAMINOPHEN 325 MG TABLET 975 MG PO (09:24)
[2024-10-18] MEDS: KETOROLAC 30 MG/ML VIAL 15 MG IV (09:25)
[2024-10-18 09:38] LABS: Add Manual Diff / Slide Review NO; Basophils Absolute Auto 0 /uL (0-100); Basophils Percent Auto 0.8 % (0-2); Eosinophils Absolute Auto 100 /uL (0-450); Hematocrit 40.2 % (36-46); Hemoglobin 13.5 g/dL (12.0-16.0); Lymphocytes Absolute Auto 1400 /uL (1100-4500); Lymphocytes Percent Auto 28.9 % (25-40); Mean Corpuscular HGB Conc 33.6 % (30-36); Mean Corpuscular Hemoglobin 29.4 PG (26-34); Mean Corpuscular Volume 87.4 fL (80-100); Monocytes Absolute Auto 500 /uL (0-900); Monocytes Percent Auto 9.4 % (3-14); Neutrophils Absolute Auto 2900 /uL (1500-7000); Neutrophils Percent Auto 57.9 % (50-75); Platelet Count 332 X10^3/uL (150-400); Red Cell Distribution Width 14.5 % (11.6-14.8); White Blood Cell Count 4.9 X10^3/uL (4.5-11.0)
[2024-10-18 09:52] LABS: Uric Acid 3.4 mg/dL (2.5-6.2)
[2024-10-18 09:55] LABS: BUN Creatinine Ratio 33.3 (6-22); Blood Urea Nitrogen 20 mg/dL (7-17); C-Reactive Protein Quant < 0.5 mg/dL (<1.0); Calcium 10.3 mg/dL (8.4-10.2); Carbon Dioxide 22 mmol/L (22-32); Chloride 104 mmol/L (98-107); Estimated Glomerular Filt Rate > 60 mL/min (>60); Glucose 178 mg/dL (70-99); HEMOLYSIS < 15 (0-50); Potassium 4.6 mmol/L (3.4-5.1); Sodium 138 mmol/L (137-145)
[2024-10-18 09:56] LABS: Erythrocyte Sedimentation Rate 8 MM/HR (0-20)
--- NOTE | 2024-10-18 09:59 | DI.RAD.S_ITS ---
PROCEDURE: XR KNEE LT 3V INDICATIONS: pain TECHNIQUE: 3 views of the knee were acquired. COMPARISON: [facility], CR, XR KNEE RT 3V, 08/13/2023, 11:14. FINDINGS: Bones: No fractures or dislocations. Nkoc-au-foxeccxz medial compartment joint space loss. Small osteophytes. No suspicious bony lesions. Soft tissues: Trace joint effusion. No suspicious soft tissue calcifications. IMPRESSION: Degenerative arthritis. No acute bony abnormality. Dictated by: Jose David Medina M.D. on 10/18/2024 at 11:54 Approved by: Jose David Medina M.D. on 10/18/2024 at 11:55
[2024-10-18] MEDS: LIDOCAINE 1% 20 ML INJ (11:51)
[2024-10-18 12:27] LABS: Crystals Body Fluid - IN-HOUSE NONE Present
== END 2024-10-18 12:54 | disposition home or self-care (01) ==
PROVIDERS: Emergency Provider Student in an Organized Health Care Education/Training Program; PCP Family Medicine
DX: M17.12 Unilateral primary osteoarthritis, left knee (principal)
CPT/HCPCS: 20610; 36415; 73562; 80048; 84550; 85025; 85651; 86140; 87070; 87075; 87205; 89060; 93971; 96374; 99284; J1885

== ENCOUNTER → 2024-11-16 09:18 | Outpatient (CLI) | payer OTHER, SELFPAY ==
--- NOTE | 2024-11-16 09:19 | DI.CT.S_ITS ---
PROCEDURE: CT LUNG LOW DOSE SCREENING INDICATIONS: left knee pain/ low dose screening TECHNIQUE: Noncontrast 2.0-2.5 mm thick sections acquired from the pulmonary apices to the posterior costophrenic angles. 7 mm thick axial MIP, and 5 mm coronal and sagittal reformats were then acquired. For radiation dose reduction, the following was used: automated exposure control, adjustment of mA and/or kV according to patient size. COMPARISON: None. FINDINGS: Image quality: Diagnostic. Lower Neck: No enlarged lymph nodes. Thyroid: No thyroid nodules which require sonographic follow up, per consensus guidelines. Axillae: No enlarged lymph nodes. Chest Wall: Unremarkable. Bones: Unremarkable. Lungs and Pleura: No pneumothorax or pleural effusions. No consolidation or suspicious nodules. Heart: Heart size is normal. No pericardial effusion. Thoracic Vessels: The aorta and pulmonary arteries demonstrate normal size. Mediastinum and Mercedes: No enlarged lymph nodes. Esophagus: No wall thickening. No hiatal hernia. Upper Abdomen: Visualized upper abdomen solid organs and bowel loops appear normal. IMPRESSION: No suspicious pulmonary nodules. LUNG-RADS 1; continued annual screening, if eligible. Clinically Significant Non-pulmonary Findings: None. Dictated by: Kevan Bowles M.D. on 11/16/2024 at 17:36 Approved by: Kevan Bowles M.D. on 11/16/2024 at 17:40
--- NOTE | 2024-11-16 09:20 | DI.MRI.S_ITS ---
PROCEDURE: MR KNEE LT WO CON INDICATIONS: left knee pain/ low dose screening TECHNIQUE: Noncontrast sagittal PD fast spin echo and T2 fast spin echo with fat saturation, sagittal 3-D FLASH with fat saturation; coronal T1 spin echo and PD fast spin echo with fat saturation, and axial PD fast spin echo with fat saturation through the knee. COMPARISON: [facility], CR, XR KNEE LT 3V, 10/18/2024, 10:14. FINDINGS: Image quality: Excellent. Menisci: Linear horizontal high T2 signal intensity traverses the inner, middle, and peripheral thirds of the posterior horn medial meniscus, indicating horizontal tearing. There is radial tearing of the posterior horn medial meniscus at the meniscal root ligament insertion site. There is amorphous high signal intensity within the middle and peripheral thirds of the medial meniscal body without articular surface extension. There is vertically oriented linear high T2 signal intensity traversing the inner/middle 3rd junction of the lateral meniscal body, indicating vertical tearing. Horizontally oriented linear high T2 signal intensity traverses the middle and peripheral thirds of the lateral meniscal body, demonstrating superior articular surface extension, indicating horizontal tearing. Cruciate ligaments: The anterior and posterior cruciate ligaments appear intact. Medial structures: The medial collateral ligament appears intact. Visualized portions of the pes anserinus tendons appear normal. No abnormal bursal fluid. Lateral structures: The lateral collateral ligament demonstrates mild T2 signal elevation at the femoral origin. The long and short heads of the biceps femoris tendon appear intact. The popliteus tendon appears normal. Iliotibial band appears normal. Anterior structures: The quadriceps and patellar tendons appear intact. Lateral subluxation of the patella. Lateral ventral trochlear prominence. Mild edema in the superolateral aspect the infrapatellar fat pad. Bones and cartilage: No bone marrow contusions or fractures. Subchondral cyst formation within the patellar apex and lateral patellar facet. Mild tricompartmental periarticular osteophyte formation. Moderate articular cartilage loss diffusely overlies the weight-bearing aspects of the medial femoral condyle and medial tibial plateau. Moderate articular cartilage loss overlies the medial and lateral patellar facets with superimposed high-grade articular cartilage loss overlying the lateral patellar facet. High-grade articular cartilage loss overlies the lateral patellar facet inferiorly. Joint space: There is a small knee joint effusion and a trace Olson's cyst. Normal appearing synovial plicae are incidentally noted. IMPRESSION: 1. Medial and lateral meniscal tearing. 2. Tricompartmental osteoarthritis with associated articular cartilage loss. 3. Findings consistent with lateral patellofemoral friction syndrome in the appropriate clinical setting. 4. Low-grade lateral collateral ligament tear. 5. Small knee joint effusion. Dictated by: Rajni Sinclair M.D. on 11/18/2024 at 11:57 Approved by: Rajni Sinclair M.D. on 11/18/2024 at 12:01
== END ==
PROVIDERS: PCP Family Medicine; Referring Provider Family Medicine; Visit Provider Family Medicine
DX: M25.562 Pain in left knee (principal); Z12.2 Encounter for screening for malignant neoplasm of respiratory organs; Z87.891 Personal history of nicotine dependence
CPT/HCPCS: 71271; 73721

== ENCOUNTER → 2025-01-16 16:08 | Outpatient (CLI) | payer OTHER, SELFPAY ==
--- NOTE | 2025-01-16 17:24 | DI.ECHO.S_ITS ---
:Name: SARA CAMPUZANO? Study Date: 01/16/2025?Height: 67 in? :Hospital ?ReadingLocation:? Weight: 210 lb : ?Gender: Female?BSA: 2.1 m2??? :: 1960? Age: 64 yrs? BP: 133/82 mmHg: :Reason For Study: SYSTOLIC MURMUR? :Ordering Physician: FRANCIE VALERO? Performed By: Donald Cronin? :Referring: JORDEN VALERO? + + Interpretation Summary 1) Normal left ventricular thickness, size, wall motion, and systolic function (EF 60-65%). 2) Normal right ventricular size and function. 3) No significant valvular abnormalities. 4) Compared to the Echo done 02/16/2022, no significant change. Procedure: ?A two-dimensional transthoracic echocardiogram with color flow and Doppler was performed. The study quality was technically good. Comparison is made with the echocardiogram of 02/16/2022. The patient was in normal sinus rhythm during the exam. Left Ventricle: ?The left ventricle is normal in size. There is normal left ventricular wall thickness. There is no ventricular septal defect visualized. The ejection fraction is estimated to be 60-65%. There are no focal wall motion abnormalities. Diastolic parameters suggest probable normal left ventricular diastolic function and normal filling pressures. Right Ventricle: ?The right ventricle is normal in size and function. Atria: ?The left atrial size is normal. Right atrial size is normal.There is no Doppler evidence for an interatrial shunt. Mitral Valve: ?The mitral valve leaflets appear normal. There is no evidence of stenosis, fluttering, or prolapse. There is no mitral regurgitation noted. Aortic Valve:? ?The aortic valve is trileaflet. The aortic valve opens well. There is no aortic valve stenosis. There is trace aortic regurgitation. Tricuspid Valve:? ?The tricuspid valve leaflets are thin and pliable. No tricuspid regurgitation. Pulmonic Valve: ?The pulmonic valve is not well seen, but is grossly normal. There is no pulmonic valvular regurgitation. Great Vessels:? ?The aortic root is normal size. The dimensions of the ascending aorta are normal. The pulmonary artery is normal size. The IVC is of normal diameter and collapses greater than 50% with a sniff. This suggests a low right atrial pressure of 3 mm Hg. Pericardium/ Pleura ?There is no pericardial effusion. There is no pleural effusion. MMode/2D Measurements & Calculations LVIDd: 4.6 cm?LVOT diam: 2.1 cm LVIDs: 3.2 cm?Ao root diam: 3.1 cm FS: 30.5 %? asc Aorta Diam: 3.0 cm EPSS: 0.61 cm? Ao Arch Diam (Prox Trans): 1.8 cm IVSd: 0.88 cm LVPWd: 0.93 cm LV nichols. diameter/BSA (cm/m^2): 2.2 LV sys. diameter/BSA (cm/m^2):1.5 LA A2 area: 20.5 cm2? RA long axis: 4.4 cm LA A4 area: 15.9 cm2? RA area: 10.8 cm2 LA length (vol): 5.3 cm? RA vol: 22.6 ml LA vol: 52.6 ml? RA : 10.9 ml/m2 LA vol index: 25.5 ml/m2? IVC diam: 1.6 cm RVD1 (basal): 3.2 cm RVD2 (mid): 2.6 cm TAPSE: 2.4 cm Doppler Measurements & Calculations Ao V2 max: 166.6 cm/sec? LVOT Max Farhan: 95.3 cm/sec Ao V2 mean: 109.7 cm/sec?LV V1 max P.6 mmHg Ao max P.1 mmHg?LV V1 VTI: 22.7 cm Ao mean P.5 mmHg?RICK(I,D): 2.1 cm2 Ao V2 VTI: 36.3 cm? RICK(V,D): 2.0 cm2 sev ratio: 0.62 RICK indexed to BSA (cm^2/m^2): 1.0 MV E max farhan: 71.8 cm/sec?PA V2 max: 128.5 cm/sec MV A max farhan: 66.4 cm/sec? PA V2 mean: 87.0 cm/sec MV E/A: 1.1? PA mean P.3 mmHg Med Peak E' Farhan: 6.9 cm/sec?PA pr(Accel): 39.6 mmHg E/E' med: 10.4 Lat Peak E' Farhan: 10.3 cm/sec E/E' lat: 7.0 E/e' average: 8.7 MV dec time: 0.26 sec SV(LVOT): 77.8 ml Reading Physician:05:24 PM
== END ==
PROVIDERS: PCP Family Medicine; Referring Provider Family Medicine; Visit Provider Family Medicine
DX: R01.1 Cardiac murmur, unspecified (principal)
CPT/HCPCS: 93306